=== PATIENT | male | born 2000 | race Hispanic/Latino ===

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

== ENCOUNTER 2021-11-18 08:19 | Outpatient (CLI) | payer SELFPAY ==
[2021-11-18] MEDS ORDERED: Magnevist 469MG/ML 20 ML VIAL ONE (08:35)
== END 2021-11-18 08:20 | disposition home or self-care (01) ==
LOC: MRI 08:19
PROVIDERS: ATTEND Internal Medicine Endocrinology, Diabetes & Metabolism
DX: E23.7 Disorder of pituitary gland, unspecified (principal)
CPT/HCPCS: 70553

== ENCOUNTER → 2022-09-20 | Outpatient (CLI) | payer OTHER | LOC: SLEEPLAB 19:30 | PROVIDERS: ATTEND Nurse Practitioner Family | DX: G47.33 Obstructive sleep apnea (adult) (pediatric) (principal); R53.83 Other fatigue; E66.9 Obesity, unspecified; K21.9 Gastro-esophageal reflux disease without esophagitis; R06.83 Snoring; G47.00 Insomnia, unspecified; G47.10 Hypersomnia, unspecified | CPT/HCPCS: 95810 ==

== ENCOUNTER 2023-05-25 13:44 | Outpatient (CLI) | payer BC | END 2023-05-25 13:45 | disposition home or self-care (01) | LOC: BICULT 13:44 | PROVIDERS: ATTEND Internal Medicine Gastroenterology | DX: K58.9 Irritable bowel syndrome, unspecified (principal); R79.89 Other specified abnormal findings of blood chemistry; K76.0 Fatty (change of) liver, not elsewhere classified | CPT/HCPCS: 76705 ==